=== PATIENT | male | born 1950 | race Caucasian/White ===

== ENCOUNTER 2017-03-15 05:26 | Day surgery (SDC) | payer OTHER ==
[~2017-03-15] VITALS: Ht 190.5 cm; Wt 123.8 kg
[~2017-03-15 05:26] MED LIST: ALLOPURINOL300 MG PO; Ascorbic Acid,Ester- PO; Aspirin E.C. PO; CALICUM 500+D1 EACH PO; CELECOXIB200 MG PO; DIGITEK250 MC2 PO; Dulcolax PO; ENDOCET 5-3251 EACH PO; FIBER LAXATIVE625 M1 PO; FIBER PO; FOLVITE1 M1 PO; GUAIFENESIN WI120 M1 PO; HYDROCODON-ACE1 EAC7 PO; IRON325 M1 PO; LISINOPRIL10 MG PO; MICROZIDE12.5 M1 PO; MULTIVITAMIN1 EAC2 PO; PANTOPRAZOLE SO40 MG PO; PRADAXA150 MG PO; Percocet 5/325,Endoc PO; Pradaxa PO; Protonix PO; SENOKOT S,PE1 TABLET PO; SIMVASTATIN10 MG PO; SIMVASTATIN20 MG PO; TENORMIN50 MG PO; THERAGRAN1 TABLET PO; TYLENOL EXTRA500 MG PO; TYLENOL REGULA325 MG PO; Tenormin PO; ULTRAM50 MG PO; VITAMIN C500 M1 PO; VITAMIN D31000 UNIT PO; ZYLOPRIM150 MG PO; Zocor PO; Zyloprim PO
[2017-03-15 06:03] VITALS: BP 144/96
[2017-03-15 09:28] VITALS: BP 164/110
[2017-03-15 10:06] VITALS: BP 160/110
== END 2017-03-15 10:15 | disposition home or self-care (01) ==
LOC: SDC 05:26
PROC: 0WUF4JZ Supplement Abdominal Wall with Synthetic Substitute, Percutaneous Endoscopic Approach (ICD-10-PCS; principal; 2017-03-15)
DX: K43.9 Ventral hernia without obstruction or gangrene (principal); Z98.84 Bariatric surgery status; I10 Essential (primary) hypertension; E78.5 Hyperlipidemia, unspecified; G47.30 Sleep apnea, unspecified; K21.9 Gastro-esophageal reflux disease without esophagitis; Z89.512 Acquired absence of left leg below knee; Z96.653 Presence of artificial knee joint, bilateral; Z85.46 Personal history of malignant neoplasm of prostate; Z85.828 Personal history of other malignant neoplasm of skin; Z68.35 Body mass index [BMI] 35.0-35.9, adult
CPT/HCPCS: C1781; J0330; J0690; J1170; J1644; J1885; J2405; J3010; S0020

== ENCOUNTER 2017-04-21 10:34 | Day surgery (SDC) | payer OTHER ==
[~2017-04-21] VITALS: Ht 190.5 cm; Wt 123.0 kg
[2017-04-21 11:30] VITALS: BP 150/95
[2017-04-21 11:50] VITALS: BP 109/55
[2017-04-21 12:09] LABS: HEMATOCRIT 39.9 % (38.0-50.0); MCH 29.1 PG (29.0-34.0); MCHC 33.6 G/DL (30.0-36.0); MCV 86.6 FL (86-99); MEAN PLAT.VOLUME 9.1 uM^3 (9.0-12.4); PLATELET COUNT 200 K/uL (156-360); RBC DIS.WIDTH-CV 13.6 % (11.8-14.6); RBC DIS.WIDTH-SD 42.7 % (39-53); RED BLOOD COUNT 4.61 M/uL (4.00-5.50); WHITE BLOOD COUNT 6.5 K/uL (4.1-10.2)
[2017-04-21 14:35] VITALS: BP 136/97
== END 2017-04-21 15:50 | disposition home or self-care (01) ==
LOC: SDC 10:34
PROVIDERS: Surgery
PROC: 0HQLXZZ Repair Left Lower Leg Skin, External Approach (ICD-10-PCS; principal; 2017-04-21)
DX: T87.89 Other complications of amputation stump (principal); M79.662 Pain in left lower leg; L98.7 Excessive and redundant skin and subcutaneous tissue; I10 Essential (primary) hypertension; E78.00 Pure hypercholesterolemia, unspecified; K21.9 Gastro-esophageal reflux disease without esophagitis; I48.91 Unspecified atrial fibrillation; G47.30 Sleep apnea, unspecified; Z85.828 Personal history of other malignant neoplasm of skin; Z87.891 Personal history of nicotine dependence
CPT/HCPCS: 85027; J0330; J0690; J1170; J1885; J2405; J3010; S0020

== ENCOUNTER 2018-07-18 05:31 | Inpatient (IN) | payer OTHER ==
[~2018-07-18] VITALS: Ht 190.5 cm; Wt 120.7 kg
[~2018-07-18 05:31] MED LIST changes: +GLUCOPHAGE1000 MG PO; +JARDIANCE10 MG PO; +ZESTRIL20 MG PO
[2018-07-18 06:11] VITALS: BP 135/90
[2018-07-18 12:33] VITALS: BP 137/90
[2018-07-18 15:51] VITALS: BP 127/84
[2018-07-18 20:07] VITALS: BP 152/81
[2018-07-19 00:12] VITALS: BP 140/93
[2018-07-19 04:03] VITALS: BP 144/76
[2018-07-19 06:28] LABS: HEMATOCRIT 42.6 % (38.0-50.0); HEMOGLOBIN 13.7 G/DL (12.5-16.6); MCHC 32.2 G/DL (30.0-36.0); MCV 90.1 FL (86-99); PLATELET COUNT 224 K/uL (156-360); RBC DIS.WIDTH-CV 14.1 % (11.8-14.6); RBC DIS.WIDTH-SD 46.2 % (39-53); RED BLOOD COUNT 4.73 M/uL (4.00-5.50); WHITE BLOOD COUNT 16.2 K/uL (4.1-10.2)
[2018-07-19 06:47] LABS: CHLORIDE 101 MEQ/L (99-109); CREATININE 1.1 MG/DL (0.6-1.3); GFR ESTIMATE (CALCULATED) > 59 mL/min/ (58.99-99999); GLUCOSE 151 mg/dL (70-99); POTASSIUM 4.8 MEQ/L (3.7-5.4); SODIUM 136 MEQ/L (136-147); UREA NITROGEN (BUN) 9 mg/dL (9-23)
[2018-07-19 07:42] VITALS: BP 134/86
[2018-07-19] MEDS ORDERED: ONDANSETRON HCL8 MG PO (08:34)
[2018-07-19] MEDS ORDERED: COLACE100 MG PO (08:34)
[2018-07-19] MEDS ORDERED: PRADAXA150 MG PO (08:34)
[2018-07-19] MEDS ORDERED: DILAUDID4 MG PO (08:34)
[2018-07-19 12:01] VITALS: BP 143/90
== END 2018-07-19 15:55 | disposition home or self-care (01) | DRG 336 ==
LOC: SDC 05:31 → 2SOUTH 10:26 → ENRESERV 10:29 → SDC 11:35 → 2EASTP 12:32 → SDC 12:49 → 2EASTP 07-19 15:55
PROVIDERS: Surgery
DX: K43.0 Incisional hernia with obstruction, without gangrene (principal); K66.0 Peritoneal adhesions (postprocedural) (postinfection); K91.872 Postprocedural seroma of a digestive system organ or structure following a digestive system procedure; E11.9 Type 2 diabetes mellitus without complications; I48.2 Chronic atrial fibrillation; K21.9 Gastro-esophageal reflux disease without esophagitis; M10.9 Gout, unspecified; E78.5 Hyperlipidemia, unspecified; I10 Essential (primary) hypertension; Y83.8 Other surgical procedures as the cause of abnormal reaction of the patient, or of later complication, without mention of misadventure at the time of the procedure; Z96.659 Presence of unspecified artificial knee joint; Z91.19 Patient's noncompliance with other medical treatment and regimen; Z79.84 Long term (current) use of oral hypoglycemic drugs; Z87.891 Personal history of nicotine dependence; Y92.89 Other specified places as the place of occurrence of the external cause; Z98.84 Bariatric surgery status
CPT/HCPCS: 80048; 82948; 85027; 87070; 87075; 87205; C1781; J0131; J0330; J0690; J1170; J1644; J2250; J2405; J2710; J3010; J7120; J7643; S0028